=== PATIENT | male | born 1985 | race Caucasian/White ===

== ENCOUNTER 2019-05-09 13:41 | Emergency (ER) | payer BC ==
[2019-05-09] MEDS ORDERED: Diphtheria,Pertussis(Acell),Tetanus Vaccine 0.5 ML Syringe IM ONE (13:51)
[2019-05-09] MEDS ORDERED: Lidocaine 1% 10 ML MDV INJECT ONE (13:51)
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
[2019-05-09] MEDS ORDERED: Lidocaine 1% 10 ML MDV ONE (13:55)
== END 2019-05-09 14:50 | disposition home or self-care (01) ==
LOC: JD.ED 13:41
DX: S61.411A Laceration without foreign body of right hand, initial encounter (principal); Z23 Encounter for immunization; F17.210 Nicotine dependence, cigarettes, uncomplicated; W26.8XXA Contact with other sharp object(s), not elsewhere classified, initial encounter
CPT/HCPCS: 12002; 90471; 90700; 99283; J2001; 99282

== ENCOUNTER 2021-06-01 09:02 | Emergency (ER) | payer BC ==
--- NOTE | 2021-06-01 10:25 | CT ---
Head CT Technique: Multiple axial sections through the brain were obtained. Intravenous contrast was not utilized. Reconstructed coronal and sagittal images were obtained. Limitations: Slight artifact is noted from the patient's earring on the left side. Comparison: No prior intracranial imaging is available. Findings: Ventricles along with basal cisterns and sulci over the convexities are within normal limits. No evidence of intracranial hemorrhage is seen. No midline shift or mass-effect is seen. Bone window settings were reviewed. Visualized mastoid sinuses and paranasal sinuses show nothing acute. No acute calvarial abnormality is appreciated. Impression: 1. Mild artifact from the patient's left-sided earring. 2. Other portions of the noncontrast head CT study appear within normal limits. Diagnostic code #2
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
[2021-06-01] MEDS ORDERED: cefTRIAXone 250 MG Vial IM ONE (11:40)
[2021-06-01] MEDS ORDERED: Lidocaine 1% 10 ML MDV ONE (12:06)
[2021-06-01] MEDS ORDERED: Lidocaine 1% 10 ML MDV INJECT ONE (12:09)
[2021-06-01 12:49] LABS: C. TRACHOMATIS BY PCR DETECTED; N. GONORRHOEAE BY PCR DETECTED
== END 2021-06-01 12:30 | disposition home or self-care (01) ==
LOC: JD.ED 09:02
DX: G44.329 Chronic post-traumatic headache, not intractable (principal); A74.9 Chlamydial infection, unspecified; A54.9 Gonococcal infection, unspecified; Z72.0 Tobacco use
CPT/HCPCS: 70450; 87491; 87591; 96372; 99284; J0696; 99283

== ENCOUNTER 2021-07-15 09:25 | Emergency (ER) | payer BC ==
[2021-07-15] MEDS ORDERED: Lidocaine 1% 10 ML MDV INJECT ONE (09:58)
--- NOTE | 2021-07-15 09:58 | EDM.PDOC ---
ED HPI GENERAL MEDICAL PROBLEM - General Chief Complaint: Laceration Stated Complaint: HAND LAC Time Seen by Provider: 07/15/21 09:52 - History of Present Illness INITIAL COMMENTS - FREE TEXT/NARRATIVE: 35-year-old male presents to the emergency room with a laceration on his right hand. This occurred around 11:00 last evening. He put a bandage over it and taped it up to stop the bleeding. His last tetanus shot was about 2 years ago with another laceration. Patient denies significant medical problems however he does take potassium daily because he works out. Patient denies any other complaints at this time. Right Hand Pain Score (Numeric/FACES): 2 - Related Data Allergies Allergy/AdvReac Type Severity Reaction Status Date / Time No Known Allergies Allergy Verified 06/01/21 09:40 Home Meds: Home Meds Potassium Chloride [Klor-Con] 20 meq PO DAILY 07/15/21 [History] Sulfamethoxazole/Trimethoprim [Sulfamethoxazole-Tmp Ds Tablet] 1 each PO BID #19 tablet 07/15/21 [Rx] Past Medical History - Past Health History Medical/Surgical History: Denies Medical/Surgical History Neurological History: Reports: Other (See Below) Other Neuro History: closed head injury 2020 - Past Surgical History GI Surgical History: Reports: Hernia Repair/Other Social & Family History - Caffeine Use Caffeine Use: Reports: Coffee - Living Situation & Occupation Living situation: Reports: Single Occupation: Employed ED ROS GENERAL - Review of Systems Review Of Systems: See Below Constitutional: Reports: No Symptoms HEENT: Reports: No Symptoms Respiratory: Reports: No Symptoms Cardiovascular: Reports: No Symptoms GI/Abdominal: Reports: No Symptoms ED EXAM, SKIN/RASH Exam: See Below Exam Limited By: No Limitations General Appearance: Alert, No Apparent Distress Head: Atraumatic, Normocephalic Neck: Normal Inspection, Supple, Non-Tender, Full Range of Motion Respiratory/Chest: No Respiratory Distress, Lungs Clear, Normal Breath Sounds Cardiovascular: Regular Rate, Rhythm, No Edema, No Murmur Extremities: Other (7 cm laceration over the thenar eminence of the right hand this is pretty much in line with the thumb. Neurovascular status to the thumb and fingers is normal tendon function to the thumb and fingers is normal) ED SKIN PROCEDURES - Laceration/Wound Repair Right Hand Appearance: Muscle, Clean Distal NVT: Neuro & Vascular Intact Anesthetic Type: Local Local Anesthesia - Lidocaine (Xylocaine): 1% Plain Local Anesthetic Volume: Other (7cc) Skin Prep: Chlorhexidine (Hibiciens), Saline Exploration/Debridement/Repair: Wound Explored, In a Bloodless Field, Explored to Base Closed with: Sutures Lac/Wound length In cm: 7.0 Suture Size: 3-0 # of Sutures: 10 Suture Type: Nylon Suture Size: 4-0 # of Sutures: 6 Repaired with: Vicryl Tetanus Status Addressed: Yes (He had his last tetanus shot with another laceration 2 years ago) Complications: No Complication Description: None Progress/Comments: Patient was stripping copper wire and the knife slipped and got his right hand across the thenar eminence. Neurovascular status of the thumb and fingers is intact tendon function of the thumb and fingers is intact. Course - Vital Signs Last Recorded V/S: Last Vital Signs Temp 36.9 C 07/15/21 09:37 Pulse 76 07/15/21 09:37 Resp 20 07/15/21 09:37 BP 133/85 07/15/21 09:37 Pulse Ox 98 07/15/21 09:37 - Orders/Labs/Meds Meds: Medications Discontinued Medications Generic Name Dose Route Start Last Admin Trade Name Freq PRN Reason Stop Dose Admin Lidocaine HCl 10 ml 07/15/21 09:58 07/15/21 10:10 Lidocaine 1% 10 Ml Mdv INJECT 07/15/21 09:59 10 ml ONETIME ONE Administration Departure - Departure Time of Disposition: 10:45 Disposition: Home, Self-Care 01 Clinical Impression: Laceration of hand - Discharge Information Referrals: PCP,None [Primary Care Provider] - Forms: ED Department Discharge Additional Instructions: Return to the emergency room with any questions problems or worsening symptoms. Return immediately if there is any signs of infection worsening redness drainage or smell. Keep the dressing intact for 24 hours then remove. For the next 24 hours keep the wound absolutely clean and dry. After a total of 48 hours you may let water gently run over the area but only for a few seconds and then gently dab dry no scrubbing. As we discussed because of the delayed closure you are at a higher risk of infection the more you do with this hand the more irritated skin and get in the higher the chance of infection is going to be. You have been started on Bactrim DS this is an antibiotic your first dose was given here in the emergency room take your next dose this evening. Do not take your potassium while taking this medication. Follow-up in the hospital clinic for suture removal in 12 to 14 days. [phone] Sepsis Event Note (ED) - Focused Exam Vital Signs: Vital Signs Temp Pulse Resp BP Pulse Ox 07/15/21 09:37 36.9 C 76 20 133/85 98
[2021-07-15] MEDS ORDERED: Sulfamethoxazole/Trimethoprim 800-160 MG Tab PO ONE (10:45)
== END 2021-07-15 11:12 | disposition home or self-care (01) ==
LOC: JD.ED 09:25
DX: S61.411A Laceration without foreign body of right hand, initial encounter (principal); W26.0XXA Contact with knife, initial encounter
CPT/HCPCS: 12002; 99282; A9270

== ENCOUNTER 2024-09-20 08:46 | Emergency (ER) | payer SELFPAY ==
[2024-09-20] MEDS: LORazepam 2 MG/ML SDV IVPUSH ONE (09:37)
[2024-09-20] MEDS: Metoclopramide 10 MG/2 ML SDV IVPUSH ONE (09:40)
[2024-09-20 09:41] LABS: BASOPHILS PERCENT AUTO 0.6 % (0.0-1.0); EOSINOPHILS PERCENT AUTO 0.4 % (0.0-6.0); HEMATOCRIT 42.8 % (42.0-52.0); HEMOGLOBIN 15.4 gm/dl (14.0-18.0); IMMATURE GRAN ABSOLUTE AUTO 0.02 K/mm3 (0.00-0.05); IMMATURE GRAN PERCENT AUTO 0.4 % (0.0-0.4); LYMPHOCYTES PERCENT AUTO 19.4 % (24.0-44.0); MEAN CORPUSCULAR HEMOGLOBIN 34.3 pg (28.0-32.0); MEAN CORPUSCULAR VOLUME 95.3 fl (83.0-99.0); MEAN PLATELET VOLUME 8.2 fl (9.4-12.4); MONOCYTES ABSOLUTE AUTO 0.5 K/mm3 (0.0-0.8); MONOCYTES PERCENT AUTO 9.4 % (0.0-8.0); NEUTROPHILS ABSOLUTE AUTO 3.5 K/mm3 (1.8-7.7); NEUTROPHILS PERCENT AUTO 69.8 % (41.0-71.0); PLATELET COUNT,PLT 127 K/mm3 (150-400); RED BLOOD CELL COUNT 4.49 M/mm3 (4.52-5.90); WHITE BLOOD CELL COUNT,WBC 5.01 K/mm3 (3.9-11.3)
[2024-09-20] MEDS: Thiamine 200 MG/2 ML MDV IVPUSH ONE (09:47)
[2024-09-20 09:48] LABS: INR 1.08; PROTHROMBIN TIME 11.4 SECONDS (9.7-12.0)
[2024-09-20 09:50] LABS: PTT,PARTIAL THROMBOPLSTIN TIME 23.8 SECONDS (21.7-31.4)
[2024-09-20] MEDS: Dextrose 5%-Lactated Ringers 1,000 ML IV SCH (09:53)
[2024-09-20 09:55] LABS: LACTIC ACID 1.7 mmol/L (0.4-2.0)
[2024-09-20 10:04] LABS: A/G RATIO 1.2 (1-2); ALANINE AMINOTRANSFERASE,ALT 45 U/L (16-63); ALBUMIN 3.7 g/dl (3.4-5.0); ALKALINE PHOSPHATASE 92 U/L (46-116); ANION GAP 14.8 (5-15); ASPARTATE AMNIOTRANSFERASE,AST 59 U/L (15-37); BILIRUBIN TOTAL 1.4 mg/dL (0.2-1.0); BLOOD UREA NITROGEN,BUN 11 mg/dL (7-18); C-REACTIVE PROTEIN <0.05 mg/dL (<0.30); CALCIUM 8.1 mg/dL (8.5-10.1); CARBON DIOXIDE,CO2 26 mEq/L (21-32); CHLORIDE,CL 105 mEq/L (98-107); ESTIMATED GFR 98 mL/min (>60); ETHANOL BLOOD MEDICAL 0.31 gm% (0.00); GAMMA GLUTAMYL TRANSFERASE,GGT 195 U/L (15-85); GLUCOSE RANDOM 99 mg/dL (70-99); LIPASE 84 U/L (16-77); MAGNESIUM 2.1 mg/dL (1.8-2.4); POTASSIUM,K 3.8 mEq/L (3.5-5.1); PROTEIN TOTAL,TP 6.9 g/dl (6.4-8.2); SODIUM,NA 142 mEq/L (136-145)
[2024-09-20] MEDS: Lactated Ringers 1,000 ML IV SCH (11:46)
[2024-09-20 13:25] LABS: APPEARANCE,URINE CLEAR (Clear); BILIRUBIN,URINE NEGATIVE (Negative); COLOR,URINE YELLOW (Yellow); GLUCOSE,URINE 1+ (Negative); KETONES,URINE NEGATIVE (Negative); LEUKOCYTE ESTERASE,URINE NEGATIVE (Negative); NITRITE,URINE NEGATIVE (Negative); OCCULT BLOOD,URINE NEGATIVE (Negative); PH,URINE 6.5 (5.0-8.0); PROTEIN,URINE 1+ (Negative); UROBILINOGEN,URINE 0.2 (0.2-1.0)
[2024-09-20 13:36] LABS: AMORPHOUS SEDIMENT,URINE FEW /hpf (NOT SEEN); BACTERIA,URINE FEW /hpf (FEW); MUCUS,URINE MODERATE /hpf (FEW); RBC,URINE 0-5 /hpf (0-5); SQUAMOUS EPITHELIAL CELLS,UR NOT SEEN /hpf (0-5); WBC,URINE 0-5 /hpf (0-5)
[2024-09-20 16:05] LABS: BARBITURATE SCREEN,URINE NEGATIVE (CUTOFF=200); BENZODIAZEPINES SCREEN,URINE PRESUMPTIVE POSITIVE (CUTOFF=150); BUPRENORPHINE SCREEN,URINE NEGATIVE (CUTOFF=10); METHADONE SCREEN, URINE NEGATIVE (CUT0FF=200); METHAMPHETAMINES SCREEN, URINE NEGATIVE (CUTOFF=500); OXYCODONE SCREEN,URINE NEGATIVE (CUT0FF=100); THC SCREEN,URINE 20 NG/ML NEGATIVE (CUTOFF=50)
[2024-09-20 16:17] LABS: AMPHETAMINES SCREEN, URINE NEGATIVE (CUTOFF=500)
== END 2024-09-20 17:14 ==
LOC: JD.ED 08:46
DX: F10.220 Alcohol dependence with intoxication, uncomplicated (principal); F17.210 Nicotine dependence, cigarettes, uncomplicated; Y90.0 Blood alcohol level of less than 20 mg/100 ml
CPT/HCPCS: 36415; 80053; 80306; 80307; 81001; 82977; 83605; 83690; 83735; 84443; 85025; 85610; 85730; 86140; 96361; 96374; 96375; 99285-25; J2060; J2765; J3411; J7120; J7121